=== PATIENT | male | born 1990 | race Hispanic/Latino ===

== ENCOUNTER 2023-01-23 19:52 | Emergency (ER) | payer SELFPAY ==
[~2023-01-23] VITALS: Ht 165.1 cm; Wt 59.0 kg
[2023-01-23] MEDS ORDERED: HYDROCODONE/APAP 10MG-325MG TAB PO PRN (20:45)
[2023-01-23] MEDS ORDERED: NAPROSYN500 MG PO (22:14)
[2023-01-23] MEDS ORDERED: HYDROCODON-ACE1 EAC9 PO (22:14)
== END 2023-01-23 22:26 | disposition home or self-care (01) ==
LOC: ER 20:37
DX: S62.333A Displaced fracture of neck of third metacarpal bone, left hand, initial encounter for closed fracture (principal); V39.9XXA Occupant (driver) (passenger) of three-wheeled motor vehicle injured in unspecified traffic accident, initial encounter; Y92.89 Other specified places as the place of occurrence of the external cause
CPT/HCPCS: 99283